=== PATIENT | male | born 1965 | race African-American/Black ===

== ENCOUNTER 2016-09-16 10:46 | Emergency (ER) | payer OTHER ==
[2016-09-16] MEDS ORDERED: ASPIRIN 81 MG CHEW TAB ONE (11:16)
== END 2016-09-16 15:28 | disposition home or self-care (01) ==
LOC: ER 10:46
DX: R07.89 Other chest pain (principal)
CPT/HCPCS: 36415; 71010; 80053; 82550; 83735; 84484; 85025; 85610; 85730; 93005